=== PATIENT | female | born 1975 | race Caucasian/White ===

== ENCOUNTER 2020-01-22 18:59 | Emergency (ER) | payer SELFPAY ==
[~2020-01-22] VITALS: Ht 149.9 cm; Wt 55.8 kg
[2020-01-22 19:11] VITALS: BP 94/60
--- NOTE | 2020-01-22 19:19 | NUR ---
PT TAKEN TO BED 2 VIA W/C.
--- NOTE | 2020-01-22 19:27 | NUR ---
44 Y/O FEMALE C/O 01/11 BURNING RIGHT KNEE PAIN X 1 WEEK. WHEN GOING TO THE RESTROOM PT HEARD A "POP." PT ABLE TO BEND KNEE BUT WITH " SEVERE PAIN." SWELLING NOTED, CREPTICE FELT. PT STATED SHE TOOK LORCET 10/325MG FOR PAIN X 20 MIN. PT IN W/C. MED HX: DIALYSIS (T S), L SHUNT (PAPLABLE THRILLS), HX OF R KNEE FX, WOUND VAC ON MID CHEST NKA
--- NOTE | 2020-01-22 19:55 | NUR ---
ERMD AT BEDSIDE EVALUATING PT
--- NOTE | 2020-01-22 20:08 | NUR ---
XRAY AT BEDSIDE
[2020-01-22] MEDS ORDERED: MORPHINE SULFATE 4 MG/ML SYR IM ONE (20:10)
--- NOTE | 2020-01-22 20:44 | NUR ---
ERMD AT BEDSIDE
[2020-01-22 21:31] VITALS: BP 94/60
--- NOTE | 2020-01-22 21:31 | NUR ---
Patient discharged with v/s stable. Written and verbal after care instructions given and explained. Patient alert, oriented and verbalized understanding of instructions. Wheel Chair Assisted with to car. All questions addressed prior to discharge. ID band removed. Patient advised to follow up with PMD. Rx of NORCO given. Patient educated on indication of medication including possible reaction and side effects. Opportunity to ask questions provided and answered.
== END 2020-01-22 21:31 | disposition home or self-care (01) ==
LOC: MED 18:59
DX: S82.109A Unspecified fracture of upper end of unspecified tibia, initial encounter for closed fracture (principal); M25.561 Pain in right knee; M25.461 Effusion, right knee; Z96.651 Presence of right artificial knee joint; Z96.643 Presence of artificial hip joint, bilateral; W05.0XXA Fall from non-moving wheelchair, initial encounter; Y93.89 Activity, other specified; Y92.89 Other specified places as the place of occurrence of the external cause; Y99.8 Other external cause status
CPT/HCPCS: 73562; 96372; 99283; J2270; Q0092